=== PATIENT | female | born 1960 | race Caucasian/White ===

== ENCOUNTER 2017-03-26 16:51 | Observation (INO) | payer BC ==
[~2017-03-26] VITALS: Ht 160 cm; Wt 62.6 kg
--- NOTE | ~2017-03-26 | EKG ---
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
--- NOTE | ~2017-03-26 | 2DMMODE ---
[facility] [address] [place] [address] 2 D/M-MODE ECHOCARDIOGRAM Name: VINITA ELLIOTT Room #: 206-P ADM IN M.R.#: [id number] Admission: 03/26/17 Attend Phys: Sissy Rincon Discharge: Date of : 58 Date of Service: 03/27/17 1301 Report #: [id number] THIS REPORT FOR: //name// APPROVED REPORT Study performed: 03/27/2017 08:42:05 EXAM: Comprehensive 2D, Doppler, and color-flow Echocardiogram Patient Location: Bedside Room #: 206 Status: routine Other Information Study Quality: Adequate Indications Dyspnea 2D Dimensions RVDd: 24.85 mm LVEF(%): 78.05 (>50%) IVSd: 10.00 (7-11mm) LVOT Diam: 17.04 (18-24mm) LVDd: 43.66 mm PWd: 8.81 (7-11mm) Ascending Ao: 28.75 (22-36mm) LVDs: 23.39 (25-40mm) Aortic Root: 25.88 mm IVC: 17.00 mm Redman's LVEF: 78.05 % Volumes Left Atrial Volume (Systole) Single Plane 4CH: 37.14 mL Single Plane 2CH: 35.30 mL LA ESV Index: 24.00 mL/m2 Aortic Valve AoV Peak Andrez.: 1.40 m/s AO Peak Gr.: 7.87 mmHg LVOT Max P.07 mmHg LVOT Max V: 1.01 m/s MIRTA Vmax: 1.64 cm2 Mitral Valve E/A Ratio: 1.4 MV Decel. Time: 214.94 ms MV E Max Andrez.: 1.10 m/s MV A Andrez.: 0.79 m/s MV PHT: 62.33 ms IVRT: 83.04 ms [facility] [place] [address] 2 D/M-MODE ECHOCARDIOGRAM Name: VIINTA ELLIOTT Room #: 206-P [facility] .R.#: [id number] Admission: 03/26/17 Attend Phys: Sissy Rincon Discharge: Date of : 58 Date of Service: 03/27/17 1301 Report #: [id number] Pulmonary Valve PV Peak Andrez.: 0.83 m/s PV Peak Gr.: 2.77 mmHg Pulmonary Vein P Vein S: 0.76 m/s P Vein A: 0.31 m/s P Vein D: 0.48 m/s P Vein A Dur.: 131.5 msec P Vein S/D Ratio: 1.58 Tricuspid Valve TR Peak Andrze.: 2.65 m/s RAP Estimate: 5.00 mmHg TR Peak Gr.: 28.18 mmHg Left Ventricle The left ventricle is normal size. There is normal left ventricular wall thickness. The left ventricular systolic function is normal. The left ventricular ejection fraction is within the normal range. LVEF is 65%. The left ventricular diastolic function is normal. Right Ventricle The right ventricle is normal size. The right ventricular systolic function is normal. Atria The left atrium size is normal. The right atrium size is normal. Aortic Valve The aortic valve is normal in structure. Mild to moderate aortic regurgitation. There is no aortic valvular stenosis. Mitral Valve The mitral valve is normal in structure. Mild mitral regurgitation. No evidence of mitral valve stenosis. Tricuspid Valve The tricuspid valve is normal in structure. There is trace tricuspid regurgitation. The right atrial pressure is estimated at 5 mmHg. PAP is estimated at 33 mmHg. Pulmonic Valve The pulmonary valve is normal in structure. Trace pulmonic regurgitation. Great Vessels The aortic root is normal in size. IVC is normal in size and [facility] [address] [place] [address] 2 D/M-MODE ECHOCARDIOGRAM Name: VINITA ELLIOTT Room #: 206-P ADM IN M.R.#: [id number] Admission: 03/26/17 Attend Phys: Sissy Rincon Discharge: Date of : 58 Date of Service: 03/27/17 1301 Report #: [id number] collapses >50% with inspiration. <Conclusion> The left ventricle is normal size. There is normal left ventricular wall thickness. The left ventricular systolic function is normal. The right ventricle is normal size. The left atrium size is normal. Mild to moderate aortic regurgitation. Mild mitral regurgitation. There is trace tricuspid regurgitation. The right atrial pressure is estimated at 5 mmHg. PAP is estimated at 33 mmHg. <ELECTRONICALLY SIGNED> By: Reddy Julien MD 03/27/17 1301 1301 1301 Reddy Julien MD /INF
--- NOTE | ~2017-03-26 | EKG ---
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
[2017-03-26 16:59] VITALS: BP 185/103
[2017-03-26 17:16] LABS: ABSOLUTE NEUTROPHILS 3.2 thou/uL (1.4-8.2); BASOPHILS 1.4 % (0.0-2.0); EOSINOPHILS 0.5 % (0.0-3.0); HEMATOCRIT 42.3 % (37.0-47.0); HEMOGLOBIN 14.9 gm/dL (12.0-15.0); LYMPHOCYTES 28.4 % (24.0-44.0); MCH 33.3 pg (26.0-34.0); MCHC 35.4 g/dL (28.0-37.0); MCV 94.1 fL (80.0-100.0); PLATELET COUNT 256 thou/uL (150-400); POLYS 60.7 % (36.0-66.0); RBC 4.49 mil/uL (4.20-5.00); RDW 12.9 % (10.5-14.5); WBC 5.3 thou/uL (4.0-11.0)
[2017-03-26 17:17] LABS: MANUAL DIFF NO
[2017-03-26 17:22] LABS: ANION GAP 9 mmol/L (7-16); BUN 13 mg/dL (7-18); CALCIUM 9.1 mg/dL (8.5-10.1); CHLORIDE 103 mmol/L (98-107); CO2 25 mmol/L (21-32); CREATININE 0.7 mg/dL (0.6-1.0); GLUCOSE 95 mg/dL (74-106); POTASSIUM 3.8 mmol/L (3.5-5.1); SODIUM 137 mmol/L (136-145)
[2017-03-26 17:36] LABS: NT-PRO BRAIN NAT PEPTIDE 66 pg/mL (<300); TROPONIN-I < 0.04 ng/mL (<0.04-0.07)
[2017-03-26 21:48] VITALS: BP 149/88
[2017-03-26] MEDS ORDERED: ALLEGRA ALLERGY60 MG PO (22:00)
[2017-03-26 22:27] VITALS: BP 143/86
[2017-03-26 23:20] VITALS: BP 154/97
[2017-03-27 03:29] VITALS: BP 123/74
[2017-03-27 07:37] LABS: HEMATOCRIT 38.7 % (37.0-47.0); HEMOGLOBIN 13.2 gm/dL (12.0-15.0); RBC 4.11 mil/uL (4.20-5.00); RDW 12.9 % (10.5-14.5); WBC 7.1 thou/uL (4.0-11.0)
[2017-03-27 07:55] VITALS: BP 133/85
[2017-03-27 08:08] LABS: CALCIUM 8.7 mg/dL (8.5-10.1); CREATININE 0.8 mg/dL (0.6-1.0); POTASSIUM 3.6 mmol/L (3.5-5.1)
[2017-03-27 08:20] LABS: CHOLESTEROL 200 mg/dL (<200); HDL CHOLESTEROL 113 mg/dL (>40); LDL CHOLESTEROL 66 mg/dL (<100); TC:HDL 1.8 Ratio (Not establshd); TRIGLYCERIDE 109 mg/dL (<150); VLDL 22 mg/dL (<40)
[2017-03-27 17:52] VITALS: BP 133/85
[2017-03-27 18:09] VITALS: BP 133/85
[2017-03-28 03:06] LABS: GLYCOHEMOGLOBIN (HGB A1C) 5.3 % (4.8-5.6)
== END 2017-03-27 18:39 | disposition home or self-care (01) ==
LOC: ER 16:51 → 2N 20:23 → EROBS 20:23 → 2N 21:49
PROVIDERS: Nurse Practitioner; Nurse Practitioner Family
DX: R07.89 Other chest pain (principal); J44.9 Chronic obstructive pulmonary disease, unspecified; K21.9 Gastro-esophageal reflux disease without esophagitis; I08.3 Combined rheumatic disorders of mitral, aortic and tricuspid valves; F17.210 Nicotine dependence, cigarettes, uncomplicated; I10 Essential (primary) hypertension; M85.80 Other specified disorders of bone density and structure, unspecified site; Z88.0 Allergy status to penicillin; Z82.49 Family history of ischemic heart disease and other diseases of the circulatory system; Z83.3 Family history of diabetes mellitus
CPT/HCPCS: 10194